=== PATIENT | female | born 1935 | race Two or more races ===

== ENCOUNTER 2021-01-18 17:42 | Emergency (ER) | payer OTHER ==
[~2021-01-18] VITALS: Ht 160 cm; Wt 52.2 kg
[2021-01-18] MEDS ORDERED: PEPCID AC20 MG PO (18:04)
[2021-01-18] MEDS ORDERED: ATORVASTATIN CA40 MG PO (18:05)
[2021-01-18] MEDS ORDERED: ZESTRIL10 M1 PO (18:05)
[2021-01-18] MEDS ORDERED: ARICEPT5 MG PO (18:05)
[2021-01-18] MEDS ORDERED: ASPIR-TRIN325 MG PO (18:06)
[2021-01-18] MEDS ORDERED: PLAVIX75 MG PO (18:06)
[2021-01-19] MEDS ORDERED: CEPHALEXIN500 M1 PO (03:09)
== END 2021-01-19 03:33 | disposition home or self-care (01) ==
LOC: ER 17:42
DX: R41.82 Altered mental status, unspecified (principal); N39.0 Urinary tract infection, site not specified; R31.29 Other microscopic hematuria; R27.0 Ataxia, unspecified; R10.84 Generalized abdominal pain; R53.81 Other malaise; M50.30 Other cervical disc degeneration, unspecified cervical region; Z03.818 Encounter for observation for suspected exposure to other biological agents ruled out